=== PATIENT | male | born 1975 | race Caucasian/White ===

== ENCOUNTER → 2016-09-09 | Outpatient (CLI) | payer OTHER ==
[~2016-09-09] MED LIST: BASAGLAR SQ; CHROMAX PLUS PO; DOCUSATE SODIU250 MG PO; DOSS PO; FLEXERIL 10 MG10 MG PO; GLUCOPHAGE1000 MG PO; LANTUS100 UNIT/1 SQ; LEVAQUIN750 MG PO; LISINOPRIL20 MG PO; PERCOCET 5-3251 EACH PO; PHENERGAN 12.12.5 M1 PO; PROTONIX 40 MG40 M1 PO; PROTONIX40 MG PO; ROXICODONE5 MG PO; TRAZODONE HCL100 MG PO; ZANTAC150 MG PO; [UNRECOGNIZED DRUG - OTHER] PO
== END ==
LOC: HEART 5 08:00
DX: R07.9 Chest pain, unspecified (principal); R42 Dizziness and giddiness; I10 Essential (primary) hypertension; R00.2 Palpitations

== ENCOUNTER → 2016-09-09 | Outpatient (CLI) | payer OTHER ==
[2016-09-09 14:50] LABS: BUN/CREATININE RATIO 23 (0-10)
== END ==
LOC: OPSV2 13:00
PROVIDERS: Orthopaedic Surgery
DX: Z01.812 Encounter for preprocedural laboratory examination (principal); Z01.810 Encounter for preprocedural cardiovascular examination; M19.012 Primary osteoarthritis, left shoulder; Z88.5 Allergy status to narcotic agent
CPT/HCPCS: 36415; 80048; 80076; 93005

== ENCOUNTER → 2016-09-12 | Day surgery (SDC) | payer OTHER ==
[~2016-09-12] VITALS: Ht 175.3 cm; Wt 95.3 kg
== END | disposition home or self-care (01) ==
LOC: OR 10:30
PROVIDERS: Orthopaedic Surgery
PROC: 0PBB0ZZ Excision of Left Clavicle, Open Approach (ICD-10-PCS; principal; 2016-09-12 12:30)
DX: M19.012 Primary osteoarthritis, left shoulder (principal); I10 Essential (primary) hypertension; E11.9 Type 2 diabetes mellitus without complications; F41.9 Anxiety disorder, unspecified; Z86.19 Personal history of other infectious and parasitic diseases; E78.5 Hyperlipidemia, unspecified; K21.9 Gastro-esophageal reflux disease without esophagitis; G47.00 Insomnia, unspecified; E55.9 Vitamin D deficiency, unspecified; G43.909 Migraine, unspecified, not intractable, without status migrainosus; F17.210 Nicotine dependence, cigarettes, uncomplicated; Z87.442 Personal history of urinary calculi; Z90.79 Acquired absence of other genital organ(s); Z79.899 Other long term (current) drug therapy; Z79.4 Long term (current) use of insulin; Z88.5 Allergy status to narcotic agent
CPT/HCPCS: 73030; 82962; J0690; J7030; J7120

== ENCOUNTER → 2016-10-01 | Outpatient (CLI) | payer OTHER ==
[~2016-10-01] VITALS: Ht 175.3 cm; Wt 93.9 kg
== END ==
LOC: OPSV 14:30
DX: L03.818 Cellulitis of other sites (principal)
CPT/HCPCS: 96365; J0875; J7070

== ENCOUNTER 2020-10-31 09:48 | Emergency (ER) | payer OTHER ==
[~2020-10-31 09:48] MED LIST changes: +ABILIFY10 MG PO; +ATENOLOL25 MG PO; +BASAGLAR K100 UNIT/1 SQ; +BENADRYL 25MG C25 MG PO; +HYDROXYZINE PAM50 MG PO; +IBUPROFEN400 MG PO; +LEXAPRO20 MG PO; +METFORMIN HCL500 MG PO; +OMEPRAZOLE20 M1 PO; +PANTOPRAZOLE SO40 MG PO; +RANITIDINE HCL150 MG PO; +SEROQUEL25 MG PO; +STOOL SOFTENER250 MG PO; +TAMSULOSIN HCL0.4 MG PO; +TRAZODONE HCL150 MG PO; +ZOFRAN4 MG PO
[2020-10-31] MEDS ORDERED: IBUPROFEN600 MG PO (11:44)
[2020-10-31] MEDS ORDERED: BACTROBAN OINT22 GM EXT (11:44)
== END 2020-10-31 11:50 | disposition home or self-care (01) ==
LOC: ER1 09:48
DX: S00.81XA Abrasion of other part of head, initial encounter (principal); I10 Essential (primary) hypertension; F17.210 Nicotine dependence, cigarettes, uncomplicated; H53.2 Diplopia; W21.11XA Struck by baseball bat, initial encounter; Z88.5 Allergy status to narcotic agent
CPT/HCPCS: 70486; 82962; 96372; 99284; J1885

== ENCOUNTER 2020-11-25 22:11 | Emergency (ER) | payer OTHER ==
[~2020-11-25 22:11] MED LIST changes: +BACTROBAN OINT22 GM EXT; +IBUPROFEN600 MG PO
[2020-11-25] MEDS ORDERED: CLEOCIN HCL300 MG PO (23:07)
== END 2020-11-25 23:12 | disposition home or self-care (01) ==
LOC: ER1 22:11
DX: L02.512 Cutaneous abscess of left hand (principal); E11.9 Type 2 diabetes mellitus without complications; I10 Essential (primary) hypertension
CPT/HCPCS: 10060; 99283

== ENCOUNTER 2021-02-07 12:22 | Emergency (ER) | payer OTHER ==
[~2021-02-07 12:22] MED LIST changes: +CLEOCIN HCL300 MG PO
[2021-02-07] MEDS ORDERED: BACTRIM DS TAB1 EACH PO (17:24)
[2021-02-07] MEDS ORDERED: CEPHALEXIN500 MG PO (17:24)
[2021-02-07] MEDS ORDERED: IBU800 MG PO (17:24)
== END 2021-02-07 17:29 | disposition home or self-care (01) ==
LOC: ER1 12:22
DX: J34.0 Abscess, furuncle and carbuncle of nose (principal); I10 Essential (primary) hypertension; E11.9 Type 2 diabetes mellitus without complications; Z88.5 Allergy status to narcotic agent; F17.200 Nicotine dependence, unspecified, uncomplicated; Z20.822 Contact with and (suspected) exposure to COVID-19
CPT/HCPCS: 70486; 82962; 96372; 99284; J1885; U0002

== ENCOUNTER 2021-08-11 10:30 | Emergency (ER) | payer OTHER ==
[~2021-08-11 10:30] MED LIST changes: +ATENOLOL50 MG PO; +AUGMENTIN 875-1 EACH PO; +AZITHROMYCIN500 MG PO; +BACTRIM DS TAB1 EACH PO; +BUPRENORPHIN-N1 EACH SL; +CEPHALEXIN500 MG PO; +FAMOTIDINE40 MG PO; +GLUCOPHAGE 500500 MG PO; +IBU800 MG PO; +ZYRTEC10 MG PO
== END 2021-08-11 12:36 | disposition home or self-care (01) ==
LOC: ER1 10:30
DX: S01.111A Laceration without foreign body of right eyelid and periocular area, initial encounter (principal); F17.210 Nicotine dependence, cigarettes, uncomplicated; I10 Essential (primary) hypertension; E10.9 Type 1 diabetes mellitus without complications; W13.2XXA Fall from, out of or through roof, initial encounter; Y92.009 Unspecified place in unspecified non-institutional (private) residence as the place of occurrence of the external cause
CPT/HCPCS: 12011; 90714; 99283

== ENCOUNTER 2021-09-29 17:38 | Emergency (ER) | payer OTHER ==
[2021-09-29 19:16] LABS: HEMOGLOBIN 15.4 gm/dl (14.0-17.5); RED BLOOD COUNT 4.49 M/UL (4.20-5.50); WHITE BLOOD COUNT 8.8 K/UL (4.5-11.0)
[2021-09-29 19:34] LABS: BUN/CREATININE RATIO 19 (0-10)
[2021-09-29] MEDS ORDERED: FLOMAX 0.4 MG0.4 MG PO (20:57)
[2021-09-29] MEDS ORDERED: IBU600 MG PO (20:57)
[2021-09-29] MEDS ORDERED: PERCOCET 5-3251 EACH PO (20:57)
[2021-09-29] MEDS ORDERED: PROTONIX20 MG PO (20:57)
[2021-09-29] MEDS ORDERED: DOXYCYCLINE HY100 M2 PO (20:57)
== END 2021-09-29 21:45 | disposition home or self-care (01) ==
LOC: ER1 17:38
PROVIDERS: Student in an Organized Health Care Education/Training Program
DX: N45.1 Epididymitis (principal); E11.9 Type 2 diabetes mellitus without complications; K21.9 Gastro-esophageal reflux disease without esophagitis; I10 Essential (primary) hypertension; F17.210 Nicotine dependence, cigarettes, uncomplicated
CPT/HCPCS: 76870; 80048; 81001; 85025; 96374; 96375; 96376; 99284; J0696; J2270

== ENCOUNTER 2021-10-07 13:51 | Emergency (ER) | payer OTHER ==
[~2021-10-07 13:51] MED LIST changes: +DOXYCYCLINE HY100 M2 PO; +FLOMAX 0.4 MG0.4 MG PO; +IBU600 MG PO; +PROTONIX20 MG PO
[2021-10-07 14:43] LABS: HEMOGLOBIN 16.2 gm/dl (14.0-17.5); RED BLOOD COUNT 4.63 M/UL (4.20-5.50); WHITE BLOOD COUNT 7.6 K/UL (4.5-11.0)
[2021-10-07 15:08] LABS: BUN/CREATININE RATIO 19 (0-10)
[2021-10-07] MEDS ORDERED: HYDROCODON-ACE1 EAC4 PO (18:31)
[2021-10-07] MEDS ORDERED: OMNICEF 300 MG300 MG PO (18:37)
== END 2021-10-07 17:40 | disposition home or self-care (01) ==
LOC: ER1 13:51
PROVIDERS: Physician Assistant
DX: N45.1 Epididymitis (principal); N43.3 Hydrocele, unspecified; Z85.47 Personal history of malignant neoplasm of testis
CPT/HCPCS: 76870; 80053; 81001; 83605; 85025; 96374; 96375; 96376; 99284; J0696; J1885; J2270; J2405; J7030

== ENCOUNTER 2021-10-21 19:59 | Emergency (ER) | payer OTHER ==
[~2021-10-21 19:59] MED LIST changes: +HYDROCODON-ACE1 EAC4 PO; +OMNICEF 300 MG300 MG PO
[2021-10-21 21:26] LABS: HEMOGLOBIN 18.3 gm/dl (14.0-17.5); RED BLOOD COUNT 5.2 M/UL (4.20-5.50); WHITE BLOOD COUNT 6.3 K/UL (4.5-11.0)
[2021-10-21 21:34] LABS: BUN/CREATININE RATIO 18 (0-10)
[2021-10-21] MEDS ORDERED: CARAFATE1 GM/10 ML PO (22:01)
[2021-10-21] MEDS ORDERED: ZOFRAN 4 MG TAB4 MG PO (22:01)
[2021-10-21] MEDS ORDERED: PROTONIX40 MG PO (22:01)
== END 2021-10-22 00:14 | disposition admitted as inpatient to this hospital (09) ==
LOC: ER1 19:59
PROVIDERS: Preventive Medicine Occupational Medicine
DX: K20.90 Esophagitis, unspecified without bleeding (principal); F10.10 Alcohol abuse, uncomplicated; E86.0 Dehydration; E87.6 Hypokalemia; Y90.5 Blood alcohol level of 100-119 mg/100 ml; F17.200 Nicotine dependence, unspecified, uncomplicated
CPT/HCPCS: 71045; 80053; 80307; 81001; 82140; 82550; 82553; 83605; 83690; 83880; 84484; 85025; 85610; 85652; 85730; 86140; 87086; 93005; 96374; 96375; 99284; C9113; G0480; J2405; J7030